=== PATIENT | male | born 1985 | race Caucasian/White ===

== ENCOUNTER 2017-04-18 22:42 | Emergency (ER) | payer OTHER | END 2017-04-19 01:19 | disposition home or self-care (01) | LOC: ER1 22:42 | DX: H66.92 Otitis media, unspecified, left ear (principal); F17.210 Nicotine dependence, cigarettes, uncomplicated | CPT/HCPCS: 99282 ==

== ENCOUNTER 2021-01-08 15:21 | Emergency (ER) | payer OTHER ==
[2021-01-08 15:45] LABS: HEMOGLOBIN 14.5 gm/dl (14.0-17.5); RED BLOOD COUNT 4.77 M/UL (4.20-5.50); WHITE BLOOD COUNT 5.4 K/UL (4.5-11.0)
[2021-01-08 16:08] LABS: BUN/CREATININE RATIO 15 (0-10)
[2021-01-08] MEDS ORDERED: HYDROCODON-ACE1 EAC4 PO (16:47)
== END 2021-01-08 18:15 | disposition home or self-care (01) ==
LOC: ER1 15:21
PROVIDERS: Emergency Medicine
DX: S27.0XXA Traumatic pneumothorax, initial encounter (principal); S01.111A Laceration without foreign body of right eyelid and periocular area, initial encounter; M25.562 Pain in left knee; W17.89XA Other fall from one level to another, initial encounter; Y92.69 Other specified industrial and construction area as the place of occurrence of the external cause; Y99.0 Civilian activity done for income or pay
CPT/HCPCS: 12013; 70450; 70486; 71045; 71260; 72125; 72128; 72131; 72170; 73564; 80053; 83605; 85025; 85610; 85730; 86850; 86900; 86901; 96374; 96375; 96376; 99285; G0480; J2270; J2405; J3010; Q9967

== ENCOUNTER → 2021-01-27 | Outpatient (CLI) | payer OTHER ==
[~2021-01-27] MED LIST: HYDROCODON-ACE1 EAC4 PO
== END ==
LOC: EMI 10:45
DX: M25.562 Pain in left knee (principal); S80.12XA Contusion of left lower leg, initial encounter; S82.892A Other fracture of left lower leg, initial encounter for closed fracture; M25.462 Effusion, left knee; R60.0 Localized edema; X58.XXXA Exposure to other specified factors, initial encounter
CPT/HCPCS: 73721